=== PATIENT | female | born 1950 | race Two or more races ===

== ENCOUNTER → 2024-04-24 | Outpatient (CLI) | payer OTHER, SELFPAY ==
--- NOTE | 2024-04-24 13:52 | XR_ITS ---
Examination: Cervical spine 3 views TECHNIQUE: AP lateral coned AP odontoid cervical spine 3 views Exam date and time: April 24, 2024 1400 hours Comparison February 19, 2024 INDICATIONS: Chronic leg pain post cervical fusion 2 months ago FINDINGS: Cervical fusion C3-C5 with anatomic alignment Advanced degenerative disc disease at C5-C6, C6-C7 No cervical fracture Intact odontoid IMPRESSION: Cervical fusion C3-C5 with anatomic alignment
== END | disposition home or self-care (01) ==
PROVIDERS: PCP Family Medicine; Referring Provider Orthopaedic Surgery Orthopaedic Surgery of the Spine; Visit Provider Orthopaedic Surgery Orthopaedic Surgery of the Spine
DX: M43.22 Fusion of spine, cervical region (principal)
CPT/HCPCS: 72040

== ENCOUNTER → 2024-07-14 | Outpatient (CLI) | payer OTHER, SELFPAY ==
--- NOTE | 2024-07-14 | XR_ITS ---
Examination: Screening digital mammography, bilateral Computer aided detection 3-D breast Tomosynthesis, bilateral Date and time of exam: 07/14/2024, 8:16 AM Comparisons: 06/22/2023 Indications: Screening Prior benign right surgical biopsy. Technique: Nonmagnified MLO, CC views of the breasts to been obtained, reconstructed from 3-D Tomosynthesis images. R2 computer aided detection program utilized for evaluation of suspicious masses and/or abnormal calcifications. 3-D Tomosynthesis images obtained. Technologist: Findings: There are scattered areas of fibroglandular density. No evidence of abnormal masses or suspicious calcifications. Impression: BI-RADS category 1: Negative findings (within normal) Recommend 1 year follow-up mammogram
== END | disposition home or self-care (01) ==
LOC: CDIM 07:52
PROVIDERS: Referring Provider Internal Medicine; Visit Provider Internal Medicine
DX: Z12.31 Encounter for screening mammogram for malignant neoplasm of breast (principal); R92.313 Mammographic fatty tissue density, bilateral breasts
CPT/HCPCS: 77063; 77067

== ENCOUNTER → 2024-07-28 | Outpatient (CLI) | payer OTHER, SELFPAY ==
--- NOTE | 2024-07-28 | XR_ITS ---
EXAMINATION: Cervical spine, 5 views Technique: Cervical spine AP, AP odontoid, lateral, bilateral obliques, 5 views Exam date and time: July 28, 2024 1113 hrs. Comparison April 24, 2024 Indications: Status post cervical fusion January 2024 Impression: Complete cervical fusion C3-C5 with anatomic alignment Advanced degenerative disc disease at C5-C6 and C6-C7 No cervical fracture Intact odontoid Impression: Cervical fusion C3-C5 with satisfactory alignment Advanced degenerative disc disease C5-C6, C6-C7 including moderate bilateral neural foraminal stenosis
== END | disposition home or self-care (01) ==
PROVIDERS: PCP Internal Medicine; Referring Provider Orthopaedic Surgery Orthopaedic Surgery of the Spine; Visit Provider Orthopaedic Surgery Orthopaedic Surgery of the Spine
DX: M50.322 Other cervical disc degeneration at C5-C6 level (principal); M48.02 Spinal stenosis, cervical region; M43.22 Fusion of spine, cervical region
CPT/HCPCS: 72050

== ENCOUNTER → 2024-09-15 | Outpatient (CLI) | payer OTHER, SELFPAY ==
[2024-09-15 11:42] LABS: Collection Type, Urine Clean Catch
[2024-09-15 11:46] LABS: Glucose Estimated Average 111 mg/dL (80-131); Hemoglobin A1C 5.5 % Hgb (4.8-6.0)
[2024-09-15 12:02] LABS: Alanine Aminotransferase 10 U/L (10-49); Albumin, Serum 4.5 gm/dL (3.4-4.8); Alkaline Phosphatase 119 U/L (46-116); Anion Gap 8 (7-16); Aspartate Amino Transferase 15 U/L (0-34); BUN/Creatinine Ratio 12 Ratio (12-20); Bilirubin,Total 1.2 mg/dL (0.3-1.2); Blood Urea Nitrogen 11 mg/dL (9-23); Calcium 9.3 mg/dL (8.3-10.6); Calcium (Corrected) 9.3 mg/dL (8.5-10.1); Carbon Dioxide 28.7 mMol/L (20.0-31.0); Cardiac Risk Estimate 1.7 RATIO (3.7-5.6); Chloride 95 mMol/L (98-107); Cholesterol 147 mg/dL (132-200); Creatinine (Component) 0.9 mg/dL (0.6-1.3); Globulin 2.3 gm/dL (2.3-3.5); Glucose 124 mg/dL (74-106); HDL Cholesterol 85 mg/dL (40-60); LDL Cholesterol,Calculated 51 mg/dL (0-130); Osmolality,Calculated 264 (275-295); Potassium 3.8 mMol/L (3.4-5.1); Sodium 132 mMol/L (136-145); Thyroid Stimulating Hormone 2.04 uIU/mL (0.55-4.78); Total Protein 6.8 gm/dL (5.7-8.2); Triglycerides 57 mg/dL (30-150); eGFR > 60 See Note
[2024-09-15 12:06] LABS: Basophils # (Auto) 0.1 Thou/mm3 (0.0-0.2); Basophils % (Auto) 1 % (0-2.5); Eosinophils # (Auto) 0.1 Thou/mm3 (0.0-0.5); Eosinophils % (Auto) 2 % (0-10); Hematocrit 38.4 % (36.0-46.0); Hemoglobin 13.6 g/dL (12.0-16.0); Immature Granulocytes % (Auto) 2 % (0-0); Immature Granulocytes Auto 0.11 Thou/mm3 (0.00-0.00); Lymphocytes # (Auto) 1.6 Thou/mm3 (1.0-4.8); Lymphocytes % (Auto) 21 % (10-50); Mean Corpuscular HGB Conc 35.4 g/dl (31.0-37.0); Mean Corpuscular Hemoglobin 32.2 pg (25.0-35.0); Mean Corpuscular Volume 91 fL (80-100); Monocytes # (Auto) 0.5 Thou/mm3 (0.0-0.8); Monocytes % (Auto) 7 % (0-12); Neutrophils # (Auto) 5.2 Thou/mm3 (1.8-7.7); Neutrophils % (Auto) 68 % (37-80); Nucleated Red Blood Cell % 0 /100 WBC (0); Platelet Count 245 Thou/mm3 (140-440); RDW Standard Deviation 40.9 fL (36.4-46.3); Red Blood Count 4.23 Miln/mm3 (4.00-5.20); White Blood Count 7.6 Thou/mm3 (3.6-11.0)
[2024-09-15 13:04] LABS: Bilirubin,Urine Negative (Negative); Blood,Urine Negative (Negative); Clarity,Urine Clear (Clear/Hazy); Color,Urine Yellow (Lt Yel-Yel); Glucose, Urine Negative (Negative); Ketones,Urine Negative (Negative); Leukocyte Esterase,Urine Positive (Negative); Nitrite,Urine Negative (Negative); PH,Urine 6.5 (5.0-7.0); Protein,Urine Negative (Neg - Trace); RBC,Urine 1 /hpf (0-3); Squamous Epithelial Cell,Urine 1 /hpf (0-5); Urobilinogen,Urine Negative mg/dL (0.0-1.0); WBC,Urine 5 /hpf (0-5)
[2024-09-15 13:45] LABS: Creatinine MALB Rnd Ur 165 mg/dL (30-125); Microalbumin Creat Ratio 7 mg/gCrea (<30); Microalbumin, Random Urine 12 mg/L (0-300)
== END | disposition home or self-care (01) ==
LOC: COPL 11:08
PROVIDERS: PCP Family Medicine; Referring Provider Family Medicine; Visit Provider Family Medicine
DX: Z00.00 Encounter for general adult medical examination without abnormal findings (principal); E03.9 Hypothyroidism, unspecified; E11.9 Type 2 diabetes mellitus without complications; E78.2 Mixed hyperlipidemia; I10 Essential (primary) hypertension
CPT/HCPCS: 36415; 80053; 80061; 81001; 82043; 82570; 83036; 84443; 85025

== ENCOUNTER → 2025-01-21 | Outpatient (CLI) | payer OTHER, SELFPAY ==
--- NOTE | 2025-01-21 13:00 | XR_ITS ---
Examination: Bone densitometry Date and time of exam:January 21, 2025, 1257 hours INDICATIONS: Hysterectomy age 33, personal history osteopenia. Technique: Lumbar spine and hip total bone mineralization values of an calculated. Peak reference and age match control results have been displayed. Findings: Lumbar spine total bone mineralization is1.069 gm/cm2. This is 0.2 standard deviations above. peak reference. This is 2.6 standard deviations above. age-matched controls. Hip total bone mineralization is 0.734 gm/cm2 This is 1.7 standard deviations below peak reference. This is 0.1 standard deviations above age-matched controls Impression: There is normal mineralization. . based on lumbar spine measurements. There is osteoporosis based on hip measurements Lumbar mineralization is decreased 4.9% compared with January 15, 2023. Hip mineralization is decreased 14.2% compared with January 15, 2023.
== END | disposition home or self-care (01) ==
LOC: CDIM 12:34
PROVIDERS: Referring Provider Family Medicine; Visit Provider Family Medicine
DX: M81.0 Age-related osteoporosis without current pathological fracture (principal)
CPT/HCPCS: 77080

== ENCOUNTER 2025-03-08 14:32 | Emergency (ER) | payer OTHER, SELFPAY ==
[2025-03-08 15:34] VITALS: BP 138/87; PULSE 70; RESP 18; TEMP 36.4; O2SAT 100; BMI 28.5
--- NOTE | 2025-03-08 16:09 | PD.EDFALL ---
ED Fall Injury RME/HPI General Chief Complaint: Fall Stated Complaint: RIGHT SHOULDER PAIN S/P FALL Time Seen by Provider: 03/08/25 15:42 Arrival date/time: 03/08/25 14:32 RME / HPI RME / HPI Narrative: DR. LITTLE MAIN ED EVALUATION: 74-year-old female presents to the Emergency Department accompanied by her for evaluation of right shoulder pain after a fall while playing ball with her dog earlier today. The patient reports falling onto her right side. Denies head injury, loss of consciousness, neck pain, back pain, or other injuries. No numbness, tingling, or weakness in the right arm. No chest pain, shortness of breath, or dizziness prior to the fall. Related Data Home Medications ?Medication ?Instructions ?Recorded ?Confirmed Trazodone * (DESYREL *) 150 mg PO HS #0 tabs 11/20/13 10/17/22 Held on 10/18/22. Instructions: Resume on 10/19/22. atorvastatin 10 mg tablet 10 mg PO QDAY 01/28/19 10/17/22 hydrochlorothiazide 12.5 mg tablet 12.5 mg PO QDAY 01/28/19 10/17/22 levothyroxine 25 mcg tablet 25 mcg PO QDAY 01/28/19 10/17/22 (Synthroid) bupropion HCl 150 mg 24 hr tablet, 150 mg PO QDAY 10/17/22 10/17/22 extended release fluticasone propionate 50 2 spray intranasal QDAY 10/17/22 10/17/22 mcg/actuation nasal spray,suspension losartan 50 mg-hydrochlorothiazide 1 tab PO QDAY 10/17/22 10/18/22 12.5 mg tablet metformin 500 mg tablet 250 mg PO QDAY 10/17/22 10/17/22 pantoprazole 40 mg tablet,delayed 40 mg PO QDAY PRN Acid Reflux 10/17/22 10/17/22 release Allergies Allergy/AdvReac Type Severity Reaction Status Date / Time Penicillins Allergy Severe Rash Verified 03/08/25 14:34 Review of Systems Review of Systems Systems Reviewed: All systems reviewed, normal except as documented Past Medical History Past Medical History NEUROLOGIC: Positive Neurological Disorders and Migraine CARDIAC: Positive Hypertension GENITOURINARY: Positive Genitourinary Disorders (URINARY STRESS INCONTINENCE) REPRODUCTIVE: Positive Previous Pregnancies (X3) MUSCULOSKELETAL: Positive Musculoskeletal Disorders ENDOCRINE: Positive Endocrine Disorders, Diabetes Mellitus Type 2 and Hypothyroidism PSYCHO/SOCIAL: Positive Depression OTHER HISTORY: Positive Chicken Pox, Measles, Mumps and Cancer (PAROTID CA REMOVAL 2011) Family History FAMILY HISTORY: Positive Family Cancer (MOTHER- COLON CA. BROTHER PANCREATIC CA) Surgical History SURGICAL: Positive Thyroidectomy (left parotid tumor removal), Tonsillectomy, Lumpectomy (FATTY TISSUE NODULES LEFT BREAST REMOVED) and Hysterectomy Social History SMOKING STATUS: Never smoker SUBSTANCE USE: does not use ALCOHOL: Never ED Exam Narrative Physical exam: GENERAL APPEARANCE: alert and oriented x 4, well-developed, well-nourished, no acute distress VITALS: All vitals were reviewed and the pulse ox is 100% on room air, which is normal according to my interpretation. HEENT: Normocephalic, atraumatic; pupils equal, round, reactive to light; EOMI; mucous membranes pink, moist; oropharynx clear NECK: Supple LUNGS: CTABL; no wheezes, no rales, no rhonchi HEART: Regular rate, regular rhythm; normal S1, S2; no murmurs ABDOMEN: non distended; normal BS; soft, no tenderness, no guarding, no rebound; no masses, no organomegaly, no hernia BACK: no CVA tenderness EXTREMITIES: FROM of right shoulder but tenderness posteriorly NEUROLOGIC: awake; alert and oriented x4; cranial nerves II-XII grossly intact; no focal sensory or motor deficits PSYCHIATRIC: appropriate mood and affect SKIN: warm, dry, normal color; no rashes Course Quality Measures none Orders Category Date Time Status XR shoulder RT min 2V Stat Exams 03/08/25 16:10 Taken Acetaminophen Tab [Tylenol Tab] Med 03/08/25 16:10 Discontinued 650 mg PO X1 ONE Ketorolac Inj [Toradol Inj] Med 03/08/25 16:10 Discontinued 30 mg IM X1 ONE Vital Signs Vital signs: Vital Signs Temperature 97.6 F 03/08/25 15:34 Pulse Rate 70 03/08/25 15:34 Respiratory Rate 18 03/08/25 15:34 Blood Pressure 138/87 H 03/08/25 15:34 Pulse Oximetry (%) 100 03/08/25 15:34 Oxygen Delivery Method Room Air 03/08/25 15:34 Fall MDM Narrative MDM Narrative:: I, Claudine Tam am scribing for and in the presence of Dr. Little. Patient data External records reviewed:: [facility] previous records Clinical information provided by:: patient Social determinants that could affect healthcare access:: none Patient has the following chronic illnesses:: Hypertension, DM 2, hypothyroidism, thyroidectomy (left parotid tumor removal), and a hysterectomy. How is presenting disease/condition affected by chronic disease/condition?: uneffected by Evaluation data The following diagnostics were reviewed and interpreted by me:: radiology exam(s) Lab and/or radiology exams considered but not ordered:: none Interpretation Summary: Contusion of right shoulder Medications / Prescriptions Medications or Prescriptions considered but not ordered:: none Medication administrations:: Medication Administration History Discontinued Medications Acetaminophen (Acetaminophen 325 Mg Tablet) 650 mg PO X1 ONE Stop: 03/08/25 16:11 Last Admin: 03/08/25 16:28 Dose: 650 mg Documented By: HANG Ketorolac Tromethamine (Ketorolac Inj 30 Mg/Ml Vial) 30 mg IM X1 ONE Stop: 03/08/25 16:11 Last Admin: 03/08/25 16:28 Dose: 30 mg Documented By: HANG see above Consultations Consultation(s) initiated? (list below): No Diagnosis Fall Differential Diagnosis: other (Right shoulder fracture, shoulder dislocation, and rotator cuff injury.) Most likely diagnosis given after review of the tests above:: Contusion of right shoulder Admission Indicated Admission indicated?: not indicated Admission Request Was there a request for admission?: No Disposition Plan Disposition Plan: Discharge Discharge Attestation Discharge Attestation: The patient and all family members were given an opportunity to ask questions and understood the discharge instructions. Discharge instructions specifically effects, indications for sooner follow up or return to the emergency department, and the expected course of current diagnosis. Patient condition: Stable Discharge Plan Plan Patient Disposition: HOME (Self Care) Prescriptions/Referrals Prescriptions/Med Rec: No Action Trazodone * (DESYREL *) 150 MG tablet 150 mg PO HS Qty: 0 atorvastatin 10 mg Tablet 10 mg PO QDAY levothyroxine [Synthroid] 25 mcg Tablet 25 mcg PO QDAY hydrochlorothiazide 12.5 mg Tablet 12.5 mg PO QDAY metformin 500 mg tablet 250 mg PO QDAY pantoprazole 40 mg tablet,delayed release (DR/EC) 40 mg PO QDAY PRN (Reason: Acid Reflux) losartan-hydrochlorothiazide 50-12.5 mg tablet 1 tab PO QDAY fluticasone propionate 50 mcg/actuation spray,suspension 2 spray INTRANASAL QDAY bupropion HCl 150 mg tablet extended release 24 hr 150 mg PO QDAY Referrals: Kemal Morales MD [Primary Care Provider, Family Practice] - In 1 week Problem List Clinical Impression: Contusion of right shoulder Patient/Caregiver Discharge Instructions Education Materials: ED Shoulder Contusion Print Language: German Stand Alone Forms: Kristi Award Info., Patient Portal Info Letter
--- NOTE | 2025-03-08 16:10 | XR_ITS ---
Examination: Shoulder, right, 3 views Technique: Shoulder AP internal rotation, AP external rotation, Y view shoulder, 3 views Exam date and time : March 08, 2025, 1657 hours INDICATIONS: Patient fell today with injury to the shoulder, shoulder pain FINDINGS: Severe osteopenia Acute nondisplaced fractures humeral neck No shoulder dislocation IMPRESSION: Acute fractures humeral neck
[2025-03-08] MEDS: KETOROLAC INJ 30 MG/ML VIAL IM (16:28)
[2025-03-08] MEDS: ACETAMINOPHEN 325 MG TABLET 650 MG PO (16:28)
== END 2025-03-08 18:51 | disposition home or self-care (01) ==
PROVIDERS: Emergency Provider Emergency Medicine; PCP Family Medicine
DX: S40.011A Contusion of right shoulder, initial encounter (principal); W19.XXXA Unspecified fall, initial encounter
CPT/HCPCS: 73030; 96372; 99283; J1885; A9270

== ENCOUNTER → 2025-03-11 | Outpatient (CLI) | payer OTHER, SELFPAY ==
[2025-03-11 09:23] LABS: Basophils # (Auto) 0.1 Thou/mm3 (0.0-0.2); Basophils % (Auto) 1 % (0-2.5); Eosinophils # (Auto) 0.3 Thou/mm3 (0.0-0.5); Eosinophils % (Auto) 3 % (0-10); Hematocrit 37.5 % (36.0-46.0); Hemoglobin 13.3 g/dL (12.0-16.0); Immature Granulocytes Auto 0.08 Thou/mm3 (0.00-0.00); Lymphocytes # (Auto) 1.8 Thou/mm3 (1.0-4.8); Lymphocytes % (Auto) 18 % (10-50); Mean Corpuscular HGB Conc 35.5 g/dl (31.0-37.0); Mean Corpuscular Hemoglobin 31.0 pg (25.0-35.0); Mean Corpuscular Volume 87 fL (80-100); Monocytes # (Auto) 0.7 Thou/mm3 (0.0-0.8); Monocytes % (Auto) 7 % (0-12); Neutrophils # (Auto) 7.1 Thou/mm3 (1.8-7.7); Neutrophils % (Auto) 71 % (37-80); Nucleated Red Blood Cell # 0.00 Thou/mm3 (0.00-0.00); Nucleated Red Blood Cell % 0 /100 WBC (0); Platelet Count 233 Thou/mm3 (140-440); RDW Standard Deviation 39.5 fL (36.4-46.3); Red Blood Count 4.29 Miln/mm3 (4.00-5.20); White Blood Count 10.0 Thou/mm3 (3.6-11.0)
[2025-03-11 09:32] LABS: Glucose Estimated Average 108 mg/dL (80-131); Hemoglobin A1C 5.4 % Hgb (4.8-6.0)
[2025-03-11 09:48] LABS: Carbon Dioxide 25.1 mMol/L (20.0-31.0); Chloride 93 mMol/L (98-107); Potassium 3.3 mMol/L (3.4-5.1); Sodium 131 mMol/L (136-145)
[2025-03-11 09:49] LABS: Alanine Aminotransferase 10 U/L (10-49); Albumin, Serum 4.8 gm/dL (3.4-4.8); Albumin/Globulin Ratio 2.3 (1.2-2.2); Alkaline Phosphatase 138 U/L (46-116); Anion Gap 13 (7-16); Aspartate Amino Transferase 20 U/L (0-34); BUN/Creatinine Ratio 9 Ratio (12-20); Bilirubin,Total 1.3 mg/dL (0.3-1.2); Blood Urea Nitrogen 7 mg/dL (9-23); Calcium 9.2 mg/dL (8.3-10.6); Calcium (Corrected) 9.2 mg/dL (8.5-10.1); Cardiac Risk Estimate 1.9 RATIO (3.7-5.6); Cholesterol 124 mg/dL (132-200); Creatinine (Component) 0.8 mg/dL (0.6-1.3); Globulin 2.1 gm/dL (2.3-3.5); Glucose 128 mg/dL (74-106); HDL Cholesterol 65 mg/dL (40-60); LDL Cholesterol,Calculated 41 mg/dL (0-130); Osmolality,Calculated 262 (275-295); Thyroid Stimulating Hormone 3.46 uIU/mL (0.55-4.78); Total Protein 6.9 gm/dL (5.7-8.2); Triglycerides 89 mg/dL (30-150); eGFR > 60 See Note
== END | disposition home or self-care (01) ==
PROVIDERS: PCP Family Medicine; Referring Provider Family Medicine; Visit Provider Family Medicine
DX: E11.69 Type 2 diabetes mellitus with other specified complication (principal); E78.2 Mixed hyperlipidemia
CPT/HCPCS: 36415; 80053; 80061; 83036; 84443; 85025

== ENCOUNTER → 2025-03-12 | Outpatient (CLI) | payer OTHER, SELFPAY ==
--- NOTE | 2025-03-12 13:34 | XR_ITS ---
EXAMINATION: Cervical spine 3 views TECHNIQUE: AP, lateral, coned AP odontoid cervical spine 3 views Date and time: March 12, 2025, 1347 hours, comparison July 28, 2024 INDICATIONS: History neck trauma and status post cervical fusion 01/20/2024 FINDINGS: Adequate alignment cervical vertebral bodies Cervical fusion C3-C5 with satisfactory alignment No cervical fracture Intact odontoid Advanced degenerative disc disease below the fusion site, C5-C6, C6-C7 IMPRESSION: Status post cervical fusion C3-C5 with anatomic alignment No cervical fracture Advanced degenerative disc disease C5-C6, C6-C7
== END | disposition home or self-care (01) ==
LOC: CDIM 13:30
PROVIDERS: PCP Family Medicine
DX: M50.322 Other cervical disc degeneration at C5-C6 level (principal); M43.22 Fusion of spine, cervical region; Z98.890 Other specified postprocedural states
CPT/HCPCS: 72040

== ENCOUNTER → 2025-03-16 | Outpatient (CLI) | payer OTHER, SELFPAY ==
--- NOTE | 2025-03-16 09:40 | EKG_ITS ---
[facility] Test Date: 2025-03-16 Pat Name: VITOR DRIVER Department: Room: - Gender: Female Communications Department Head: RTGARLAND : 1950 Requested By: Royal Arriola Order Number: [id number] Reading MD: Royal Arriola Measurements Intervals [place] Rate: 76 P: 32 MA: 121 QRS: 35 QRSD: 85 T: 31 QT: 381 QTc: 430 Interpretive Statements SINUS RHYTHM POSSIBLE ANTERIOR MYOCARDIAL INFARCTION , OF INDETERMINATE AGE [30 ms Q WAVE IN V3/V4, OR R < 0.2 mV IN V4] No previous ECG available for comparison /[id number]/[email or web address]/[id number].pdf
[2025-03-16 09:47] LABS: Basophils # (Auto) 0.1 Thou/mm3 (0.0-0.2); Basophils % (Auto) 1 % (0-2.5); Eosinophils # (Auto) 0.3 Thou/mm3 (0.0-0.5); Eosinophils % (Auto) 3 % (0-10); Hematocrit 39.4 % (36.0-46.0); Hemoglobin 13.6 g/dL (12.0-16.0); Immature Granulocytes Auto 0.22 Thou/mm3 (0.00-0.00); Lymphocytes # (Auto) 2.0 Thou/mm3 (1.0-4.8); Lymphocytes % (Auto) 22 % (10-50); Mean Corpuscular HGB Conc 34.5 g/dl (31.0-37.0); Mean Corpuscular Hemoglobin 30.6 pg (25.0-35.0); Mean Corpuscular Volume 89 fL (80-100); Monocytes # (Auto) 0.7 Thou/mm3 (0.0-0.8); Monocytes % (Auto) 8 % (0-12); Neutrophils # (Auto) 5.8 Thou/mm3 (1.8-7.7); Neutrophils % (Auto) 64 % (37-80); Nucleated Red Blood Cell # 0.00 Thou/mm3 (0.00-0.00); Nucleated Red Blood Cell % 0 /100 WBC (0); Platelet Count 275 Thou/mm3 (140-440); RDW Standard Deviation 39.6 fL (36.4-46.3); Red Blood Count 4.44 Miln/mm3 (4.00-5.20); White Blood Count 9.1 Thou/mm3 (3.6-11.0)
[2025-03-16 10:15] LABS: INR 0.9 (0.9-1.3); Partial Thromboplastin Time 26.9 Seconds (22.0-36.0); Prothrombin Time 10.1 Seconds (9.0-12.2)
== END | disposition home or self-care (01) ==
PROVIDERS: PCP Family Medicine; Referring Provider Orthopaedic Surgery; Visit Provider Orthopaedic Surgery
DX: Z01.810 Encounter for preprocedural cardiovascular examination (principal); S42.301A Unspecified fracture of shaft of humerus, right arm, initial encounter for closed fracture; E11.69 Type 2 diabetes mellitus with other specified complication; E78.2 Mixed hyperlipidemia; I10 Essential (primary) hypertension
CPT/HCPCS: 36415; 85025; 85610; 85730; 93005